=== PATIENT | male | born 1960 | race African-American/Black ===

== ENCOUNTER 2017-07-18 17:00 | Inpatient (IN) | payer OTHER ==
[~2017-07-18] VITALS: Ht 180.3 cm; Wt 72.6 kg
--- NOTE | ~2017-07-18 | DS ---
Unit #: [id number] #: [id number] Patient: [facility]ON [facility]ARIA [id number] [facility] [address] [place] [address] [id number] MR#: [id number] NAME: LEVON FARIA ROOM: [facility] Age: 56 Sex: M Admission Date: 07/18/2017 : 1960 Discharge Date: 07/23/2017 Attending Physician: Lizette Toledo M.D. Primary Care Physician: Primary Care Physician No DISCHARGE SUMMARY IDENTIFYING DATA Mr. Faria is a 56-year-old single white male who is a resident of [place], [place] and was self-referred to the hospital on a voluntary basis. HISTORY OF PRESENT ILLNESS Please see initial psychiatric evaluation. PAST PSYCHIATRIC HISTORY Please see initial psychiatric evaluation. PAST MEDICAL HISTORY Please see initial psychiatric evaluation. HOSPITAL COURSE The [facility] and was oriented to the hospital environment. Routine p.r.n. medications were initiated and he was started back on his home medications. Medications were adjusted and he was closely monitored. He was taking the medications regularly and was tolerating them fairly well and was able to show a decent therapeutic response with improvement in depression and anxiety and was willing to continue treatment on outpatient basis and as such it was decided that he will be discharged home. Will continue treatment on outpatient basis. DISCHARGE DIAGNOSES PSYCHIATRIC: 1. Major depressive disorder, recurrent, moderate, without psychotic features. 2. Opiate dependence, moderate, in acute withdrawal. 3. Alcohol dependence, moderate. MEDICAL: Bronchitis. STRESSORS: Moderate psychosocial stressors. DISCHARGE MEDICATIONS Celexa 20 mg daily for depression. PROGNOSIS Fair. Unit #: [id number] #: [id number] Patient: LEVON FARIA Dictated by... Lizette Toledo M.D. IAA/clementina TD: 07/23/2017 18:31 JOB #: [id number] DISCHARGE SUMMARY Page 1 of 1 X Lizette Toledo MD DISCHARGE SUMMARY
--- NOTE | ~2017-07-18 | HP ---
Unit #: [id number] #: [id number] Patient: LEVON STEVEN [id number] [place] [address] [id number] MR#: [id number] NAME: LEVON STEVEN ROOM: 83 Age: 56 Sex: M Admission Date: 07/18/2017 : 1960 Attending Physician: Lizette Toledo M.D. Admitting Physician: Lizette Toledo M.D. Primary Care Physician: Primary Care Physician No HISTORY AND PHYSICAL HISTORY OF PRESENT ILLNESS Levon is a 56 year old admitted to [facility] with depression and verbalizing wanting to hurt himself. PAST MEDICAL HISTORY 1. COPD. 2. History of illicit substance abuse to include snorting heroin. PAST SURGICAL HISTORY Nothing reported. ALLERGIES No known drug allergies. SOCIAL HISTORY Smokes one pack per day. Drinks alcohol on occasion. Admits to a history of illicit substance abuse to include snorting heroin. FAMILY HISTORY Medically noncontributory. REVIEW OF SYSTEMS CONSTITUTIONAL: No fever or chills. HEENT: Denies any sore throat, ear pain or runny nose. CARDIOVASCULAR: Denies chest pain, irregular heart rhythm or palpitations. CHEST: Denies shortness of breath or cough. No hemoptysis. GASTROINTESTINAL: Denies nausea, vomiting, diarrhea or chronic constipation. ENDOCRINE: Denies history of increased thirst or urination. No recent significant weight loss or gain. GENITOURINARY: Denies dysuria, frequency, or hematuria. SKIN: Denies any rashes. HEMATOLOGIC: Denies history of increased bleeding or bruising. MUSCULOSKELETAL: Denies any hot, swollen joints. No generalized muscle pain. NEUROLOGIC: Denies problems with vision or speech. No frequent, severe headaches. No numbness, tingling or weakness in any extremities. Denies loss of bladder or bowel control. CURRENT MEDICATIONS 1. Detox protocol 2. Celexa 20 mg q day Unit #: [id number] #: [id number] Patient: LEVON STEVEN PHYSICAL EXAMINATION GENERAL: Alert, thin, in no apparent distress. VITAL SIGNS: Blood pressure 100/70, heart rate 80, respirations 16, temperature 98.6. WEIGHT: 160. HEIGHT: 5 foot 11 inches. SKIN: Warm and dry without rash or lesion. HEENT: Normocephalic. TMs not viewed. Oral and nasal passages clear. Conjunctivae clear. Pupils equal, round and reactive to light and accommodation. Extraocular movements intact. NECK: Supple without lymphadenopathy or thyromegaly. HEART: Regular rate and rhythm without murmur. LUNGS: Clear. ABDOMEN: Soft, nontender. : Not done. EXTREMITIES: No evidence of cyanosis, clubbing or edema. Moves all extremities without focal deficit. NEUROLOGICAL: Grossly within normal limits. Cranial Nerves: II: Visual hudson are intact. III, IV AND : Extraocular movements are intact. Pupils are equal, round and reactive to light. V: Facial sensation is grossly normal. VII: Facial movements and expression are normal. VIII: Auditory acuity grossly intact. IX, X: Uvula is midline. Phonation is normal. XI: Patient shrugs shoulders and turns head normally. XII: Tongue protrudes in the midline. Sensory and Motor Function: Sensory and motor sensation is grossly normal. Motor: moves all extremities well. Coordination: Gait is normal. Deep Tendon Reflexes: Intact. IMPRESSION Psychiatric admission. RECOMMENDATIONS PSYCHIATRIC: Per psychiatrist. MEDICAL: I see no contraindications to participating in facility's activities. MEDICAL PROGNOSIS Good. MEDICAL CONDITION Stable. Dictated by... Anton SandovalAAlejandro. for Andres Baptiste/tristan TD: 07/19/2017 23:04 JOB #: [id number] Unit #: [id number] #: [id number] Patient: LEVON STEVEN HISTORY AND PHYSICAL Page 1 of 1 X Jyotsna Sibley X HISTORY AND PHYSICAL
--- NOTE | ~2017-07-18 | PN ---
Unit #: [id number] #: [id number] Patient: LEVON FARIA [id number] [facility] [address] [place] [address] [id number] I MR#: [id number] NAME: LEVON FARIA ROOM: [facility] Age: 56 Sex: M Admission Date: 07/18/2017 : 1960 Attending Physician: Lizette Toledo M.D. Admitting Physician: Lizette Toledo M.D. Primary Care Physician: Primary Care Physician Lisa LOJA NOTES DATE 07/20/2017 DISCUSSION Mr. Faria is a 56-year-old, male with mood disorder who was seen today and chart was reviewed and case was discussed with the staff. He has been anxious, withdrawn and depressed and rather seclusive to himself and reports feelings of hopelessness and helplessness. Meanwhile, he has been cooperative with treatment recommendations. He has been taking medications and tolerating them fairly well with no reported side effects. MENTAL STATUS EXAM Middle-aged male who was casually dressed with fair personal hygiene, appears to be in no acute distress or discomfort. He was awake and alert on interaction with intact orientation. His mood was anxious and depressed with congruent affect. His speech was slow and goal directed. He reports having suicidal ideation but any denies any homicidal ideations. Also, denies any auditory or visual hallucinations. His insight and judgement remains slightly impaired. TREATMENT PLAN 1. We will continue him on his current medications and treatment protocol. We will monitor his response to the medication and make further adjustments as needed. 2. We will continue to follow up. Dictated by... Andres Zuleta/tristan TD: 07/20/2017 22:29 JOB #: [id number] Unit #: [id number] #: [id number] Patient: LEVON FARIA MARGARETHKENYA FREEDOM NOTES Page 1 of 1 X Lizette Toledo MD PROGRESS NOTE
--- NOTE | ~2017-07-18 | PA ---
Unit #: [id number] #: [id number] Patient: LEVON FARIA [id number] [facility] [address] [place] [address] [id number] I MR#: [id number] NAME: LEVON FARIA ROOM: [facility] Age: 56 Sex: M Admission Date: 07/18/2017 : 1960 Date of Assessment: Attending Physician: Lizette Toledo M.D. Admitting Physician: Lizette Toledo M.D. Primary Care Physician: Primary Care Physician No PSYCHIATRIC ASSESSMENT DATE OF SERVICE 07/19/2017. IDENTIFYING DATA Mr. Faria is a 56-year-old single white male, who is a resident of [place], [place], and was self-referred to the hospital on a voluntary basis. CHIEF COMPLAINT "I feel like killing myself." HISTORY OF PRESENT ILLNESS Mr. Faria is a 56-year-old white male with history of mood disorder, who was self-referred to the hospital reporting suicidal ideations and that he was supposed to go to the [facility] and he got to thinking about his mother and he felt like dying and that he plans to hang himself in a suicide attempt. He reports he snorts 2 packages of heroin daily and reports that he has been using heroin for the past 2 years. He reports last use was yesterday and also reports drinking occasionally and does report significant consequences because of his addiction and poor social support system with increasing depression, feelings of hopelessness and helplessness, and suicidal ideation and as such, recommendation for inpatient level of care for safety and stabilization was made and the patient was stepped up to the inpatient unit. SUBSTANCE ABUSE HISTORY The patient reports history of alcohol and opioid abuse, and reports that he has been snorting heroin and drinking few cans of beer on daily basis with the last use of both of them being yesterday. PAST PSYCHIATRIC HISTORY The patient has not had any prior inpatient or outpatient psychiatric treatment. Review of the medical records indicate currently he is not active in any treatment program, is not seeing a psychiatrist, and is not taking any psychotropic medications. PAST MEDICAL HISTORY Bronchitis. ALLERGIES No known medication allergies. CURRENT MEDICATIONS Unit #: [id number] #: [id number] Patient: LEVON FARIA Proventil inhaler. PERSONAL AND SOCIAL HISTORY A 56-year-old white male, who reports that he is single, unemployed, and essentially homeless and has poor social support system. MENTAL STATUS EXAMINATION Middle-aged white male who was casually dressed with fair personal hygiene, appears to be in no acute distress or discomfort. He was awake and alert on interaction with intact orientation to time, place, and person. His mood was anxious and depressed with a congruent affect. His speech was slow and restricted in content. His thought processes were disorganized with some looseness of associations and flight of ideas and suicidal ideations. His insight and judgment remain significantly impaired. DIAGNOSTIC IMPRESSION Psychiatric: Major depressive disorder, recurrent, moderate, without psychotic features; opioid dependence, moderate and acute withdrawals; alcohol dependence, moderate. Medical: Bronchitis. Stressors: Moderate psychosocial stressors. TREATMENT PLAN 1. The patient has presented with history of mood disorder and substance abuse and has been decompensating and will need inpatient hospitalization for safety and stabilization. We will start him on detox protocol. We will also recommend initiating antidepressant therapy. 2. Supportive therapy was provided to the patient. 3. Safe, structured, and nourishing environment will be provided. ESTIMATED LENGTH OF STAY 5 to 7 days. ABILITY TO HELP SELF Limited. WILLINGNESS TO HELP SELF The patient appears to be willing to help self. STRENGTHS 1. Communicative. 2. Cooperative. PROBLEMS 1. Chronic dysphoric symptoms. 2. Chronic chemical dependency. 3. Poor social support system. DISCHARGE CRITERIA This will be contingent upon the patient's ability to go through detox without having any significant withdrawal symptoms as well as his ability to stay safe to himself and others, particularly after discharge from the hospital. Dictated by... Lizette Toledo M.D. Unit #: [id number] #: [id number] Patient: LEVON FARIA MASOUD/modl TD: 07/19/2017 06:53 JOB #: [id number] PSYCHIATRIC ASSESSMENT Page 1 of 1 X Lizette Toledo MD X PSYCHIATRIC ASSESSMENT
--- NOTE | ~2017-07-18 | PN ---
Unit #: [id number] #: [id number] Patient: LEVON FARIA [id number] [facility] [address] [place] [address] [id number] MR#: [id number] NAME: LEVON FARIA [facility] Age: 56 Sex: M Admission Date: 07/18/2017 : 1960 Attending Physician: Lizette Toledo M.D. Admitting Physician: Lizette Toledo M.D. Primary Care Physician: Primary Care Physician Lisa CAUSEY PROGRESS NOTES DATE July 21, 2017 DISCUSSION Mr. Faria is a 56-year-old male, who was seen today and chart was reviewed and the case was discussed with the staff. He has been anxious, withdrawn, and rather seclusive to himself. Meanwhile, he has been cooperative with the treatment recommendations and he has been taking the medications and tolerating them fairly well with no reported side effects. MENTAL STATUS EXAMINATION Middle-aged male, who was casually dressed with fair personal hygiene and appears to be in no acute distress or discomfort. He was awake and alert on interaction with intact orientation. His mood is anxious with a congruent affect. His speech is slow and goal-directed. He reports having suicidal ideation but denies any homicidal ideations. His insight and judgment remain slightly impaired. TREATMENT PLAN 1. We will continue him on his current medications and treatment protocol, and will monitor his response to the medications, and make further adjustments as needed. 2. We will continue to followup. Dictated by... Andres Zuleta/deniz TD: 07/21/2017 11:12 JOB #: [id number] Unit #: [id number] #: [id number] Patient: LEVON FARIA PROGRESS NOTES Page 1 of 1 X Lizette Toledo MD PROGRESS NOTE
--- NOTE | ~2017-07-18 | PN ---
Unit #: [id number] #: [id number] Patient: LEVON FARIA [id number] [facility] [address] [place] [address] [id number] I MR#: [id number] NAME: LEVON FARIA ROOM: [facility] Age: 56 Sex: M Admission Date: 07/18/2017 : 1960 Attending Physician: Lizette Toledo M.D. Admitting Physician: Lizette Toledo M.D. Primary Care Physician: Primary Care Physician Lisa LOJA NOTES DATE OF SERVICE 07/22/2017 DISCUSSION Mr. Faria is a 56-year-old male who was seen today. Chart was reviewed and case was discussed with the staff. He has been anxious, withdrawn, and rather seclusive to himself and reports feeling better than yesterday and has been calm and cooperative with treatment recommendations as he has been taking the medications and tolerating them fairly well with no reported side effects. MENTAL STATUS EXAMINATION Middle-aged male who is casually dressed with fair personal hygiene, appears to be in no acute distress or discomfort. He was awake and alert with intact orientation. His mood is anxious and depressed with congruent affect. His speech is slow and goal-directed. He denies any suicidal or homicidal ideations and also denies any auditory or visual hallucinations. His insight and judgment remain fairly intact. TREATMENT PLAN 1. We will continue him on his current medications and treatment protocol. We will monitor his response to the medications and make further adjustments as needed. 2. We will continue to follow up. Dictated by... Andres Zuleta/katerina TD: 07/22/2017 10:57 JOB #: [id number] Unit #: [id number] #: [id number] Patient: LEVON FARIA PROGRESS NOTES Page 1 of 1 X Lizette Toledo MD X PROGRESS NOTE
[2017-07-19 09:43] LABS: BASOPHIL% 0.4 % (0-2.5); EOSINOPHIL# 0.1 X10e3 (0-0.7); EOSINOPHIL% 1.2 % (0.0-7.0); HEMATOCRIT 34.3 % (38.0-50.0); HEMOGLOBIN 11.3 gm/dL (13.0-16.0); LYMPHOCYTE# 1.7 X10e3 (1.0-3.5); LYMPHOCYTE% 18.8 % (17.0-45.0); MEAN CELL VOLUME 94.1 FL (83-96); MEAN CORPUSCULAR HEMOGLOBIN 30.8 PG (28-34); MEAN CORPUSCULAR HGB CONC 32.8 g/dL (30-36); MEAN PLATELET VOLUME 8.8 FL (6.5-11.5); MONOCYTE# 1.2 X10e3 (0-1.0); MONOCYTE% 13.3 % (3.0-12.0); NEUTROPHIL# 5.9 X10e3 (1.5-7.1); NEUTROPHIL% 66.3 % (40-75); PLATELET COUNT 279 X10e3 (140-420); RED BLOOD COUNT 3.65 X10e (3.90-5.60); RED CELL DISTRIBUTION WIDTH 13.7 % (11.0-15.5); WHITE BLOOD COUNT 8.9 X10e3 (4.0-10.5)
[2017-07-19 09:48] LABS: DIFF IND NO
[2017-07-19 10:02] LABS: BUN/CREATININE RATIO 12.22; CALCIUM SERUM 10.9 mg/dL (8.4-10.2); CREATININE SERUM 0.9 mg/dL (0.6-1.4); GLOM FILT RATE Estimated 110.3 mL/min (>60); POTASSIUM 4.4 mmol/L (3.5-5.1); PROTEIN TOTAL SERUM 7.5 g/dL (6.0-8.3)
[2017-07-19 10:03] LABS: ALBUMIN SERUM 2.5 g/dL (3.5-5.0); BILIRUBIN,TOTAL 0.7 mg/dL (0.2-2.0)
[2017-07-19 12:36] LABS: URINE APPEARANCE CLOUDY; URINE BLOOD NEG (NEG); URINE COLOR DK YELLOW; URINE GLUCOSE NEG (NEG); URINE KETONE NEG (NEG); URINE LEUKOCYTE ESTERASE NEG (NEG); URINE NITRATE NEG (NEG); URINE PROTEIN NEG (NEG); URINE SPECIFIC GRAVITY 1.024 (1.003-1.035)
[2017-07-19 12:51] LABS: URINE BILIRUBIN NEG (NEG)
[2017-07-19 12:54] LABS: AMPHETAMINE NEG (NEG); BARBITURATES NEG (NEG); BENZODIAZEPINES NEG (NEG); COCAINE NEG (NEG); MARIJUANA NEG (NEG); OPIATES POS (NEG); TRICYCLIC ANTIDEPRESSANTS NEG (NEG); U METHADONE NEG (NEG)
[2017-07-19 13:00] LABS: CULTURE INDICATED? NO
== END 2017-07-23 09:55 | DRG 885 ==
LOC: P1E 22:15
PROVIDERS: Psychiatry & Neurology Psychiatry
PROC: HZ2ZZZZ Detoxification Services for Substance Abuse Treatment (ICD-10-PCS; principal; 2017-07-18)
DX: F33.1 Major depressive disorder, recurrent, moderate (principal); R45.851 Suicidal ideations; F11.23 Opioid dependence with withdrawal; F10.20 Alcohol dependence, uncomplicated; J40 Bronchitis, not specified as acute or chronic; Z59.0 Homelessness; F17.200 Nicotine dependence, unspecified, uncomplicated
CPT/HCPCS: 80053; 80307; 81003; 85025